=== PATIENT | female | born 1975 | race Caucasian/White ===

== ENCOUNTER 2022-01-13 15:18 | Outpatient (CLI) | payer BC, SELFPAY ==
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
--- OUTSIDE RECORDS SUMMARY | 2022-01-27 09:07 | XMS_ITS ---
:1975 Author Care Team Providers Name Role Phone Yu Francisco Primary Care Provider Unavailable Allergies Code Code System Name Reaction Severity Status Onset Droperidol ? ? Active ? Medications Name Status Start Date Stop Date ? ? alprazolam 0.25 mg tablet Active ? Not av ailable TAKE 1 TABLET BY MOUTH TWICE DAILY NEEDED fluconazole 150 mg tablet Completed ? 2020 TAKE ONE TABLET BY MOUTH ONCE FOR 1 DOS E. TAKE 1 TABLET BY MOUTH 1 TIME WEEKLY IF ON CLEOCIN FOR VAGINAL SYMPTOMS metronidazole 500 mg tablet Active ? Not available TAKE ONE TABLET BY MOUTH TWICE DAILY terbinafine HCl 250 mg tablet Completed ? TAKE ONE TABLET BY MOUTH DAILY turmeric root extract 500 mg capsule Active 06/28/2021 Not available Vitamin D Active ? Not available Problems No Known Problems Procedures Date Name [...] ? Tooth Extraction Information not avai lable Results Lab Results Date Name Specimen Result Interpretation Description Value Range Status Address ? 12/22/2021 CBC W/ Diff Blood ? WBC Count 5.0 4.0-11.0 [facility] 10e3/uL 10e3/uL [place] : [address], [place] ? ? Blood ? RBC Count 4.44 3.80-5.20 Final [facility] venous 10e6/uL 10e6/uL [place] : [address] [facility] [address], [place] ? ? Blood ? Hemoglobin 13.6 g/dL 11.7-15.7 [facility] venous g/dL [place] [address] [facility] [address] [place] ? ? Blood ? Hematocrit 41.8 % 35.0-47.0 Final [facility] venous % [place]: [address] [facility] [address], [place] ? ? Blood ? Mcv 94 fL 78-100 fL [facility] [place] [address] [facility] [address], [place] ? ? Blood ? Mch 30.6 pg 26.5-33.0 Final [facility] th venous pg [place]: [address] [facility] [address], [place] ? ? Blood ? Mchc 32.5 g/dL 31.5-36.5 Final [facility] alth venous g/dL [place]: [address] [facility] [address], [place] ? ? Blood ? Rdw 13.2 % 10.0-15.0 [facility] % [place]: [address] [facility] [address], [place] ? ? Blood ? Platelet 251 150-450 Final [facility] th venous Count 10e3/uL 10e3/uL [place] : [address] [facility] [address], [place] ? ? Blood ? % 53 % ? Final [facility] venous Neutrophils [place]: [address] [facility] [address] ? ? Blood ? % 36 % ? Final [facility] venous Lymphocytes [place]: [address] [facility] [address], [place] ? ? Blood ? % 8 % ? Final [facility] venous Monocytes [place]: [address] [facility] [address], [place] ? ? Blood ? % 2 % ? Final [facility] venous Eosinophils [place]: [address] [facility] [address] ? ? Blood ? % 1 % ? Final [facility] venous Basophils [place]: [address] [facility] [address] ? ? Blood ? % Immature 0 % ? Final [facility] lt venous Granulocyte [place]: s [address], [place] ? ? Blood ? Nrbcs per 0 /100 <1 /100 Final [facility] venous 100 Wbc [place]: [address], [place] ? ? Blood ? Absolute 2.6 1.6-8.3 Final M [facility] th venous Neutrophils 10e3/uL 10e3/uL [place]: [address], [place] ? ? Blood ? Absolute 1.8 0.8-5.3 Final M [facility] th venous Lymphocytes 10e3/uL 10e3/uL [place]: [address], [place] ? ? Blood ? Absolute 0.4 0.0-1.3 Final M [facility] venous Monocytes 10e3/uL 10e3/uL [place]: [address] [facility] [address], [place] ? ? Blood ? Absolute 0.1 0.0-0.7 Final M [facility] th venous Eosinophils 10e3/uL 10e3/uL [place]: [address] [facility] [address], [place] ? ? Blood ? Absolute 0.1 0.0-0.2 Final M [facility] venous Basophils 10e3/uL 10e3/uL [place]: [address] [facility] [address], [place] ? ? Blood ? Absolute 0.0 <=0.4 Final Healt h venous Immature 10e3/uL 10e3/uL [place]: Granulocyte [address], [place] ? ? Blood ? Absolute 0.0 ? Final [facility] venous Nrbcs 10e3/uL [place]: [address] [facility] [address], [place] 12/22/2021 CMP, Serum Blood ? Sodium 140 136-145 Final [facility] or Plasma venous mmol/L mmol/L [place]: [address], [place] ? ? Blood ? Potassium 4.7 3.4-5.3 [facility] venous mmol/L mmol/L [place]: [address] [facility] [address] ? ? Blood ? Creatinine 0.54 0.51-0.95 Final [facility] mg/dL mg/dL [place]: [address], [place] ? ? Blood ? Urea 9.4 mg/dL 6.0-20.0 Final [facility] venous Nitrogen mg/dL [place] : [address], [place] ? ? Blood ? Chloride 102 98-107 [facility] mmol/L mmol/L [place]: [address], [place] ? ? Blood ? Carbon 27 mmol/L 22-29 Final [facility] venous Dioxide mmol/L [place]: (Co2) [address], [place] ? ? Blood ? Anion Gap 11 mmol/L 7-[address] [facility] ealth venous mmol/L [place]: [address], [place] ? ? Blood ? Glucose 80 mg/dL 70-99 Final [facility] venous mg/dL [place]: [address], [place] ? ? Blood ? Calcium 9.5 mg/dL 8.6-10.[address] [facility] ealt venous mg/dL [place]: [address], [place] ? ? Blood ? Protein 7.3 g/dL 6.4-8.3 Final [facility] venous Total g/dL [place]: [address], [place] ? ? Blood ? Albumin 4.7 g/dL 3.5-5.2 Final [facility] venous g/dL [place]: [address], [place] ? ? Blood ? Bilirubin 0.4 mg/dL <=1.[address] [facility] ealt venous Total mg/dL [place]: [address], [place] ? ? Blood ? Alkaline 68 U/L 35-104 [facility] Phosphatase U/L [place]: [address], [place] ? ? Blood ? Ast 34 U/L 10-35 U/L [facility] [place]: [address], [place] ? ? Blood ? Alt 28 U/L 10-35 U/L Final M [facility] venous [place]: [address], [place] ? ? Blood ? GFR >90 >60 Final Health venous Estimate mL/min/1. mL/min/1. [place]: 73m2 73m2 [address], [place] 12/22/2021 TSH, Serum Blood ? Tsh 1.31 0.30-4.20 Final [facility] or Plasma venous uIU/mL uIU/mL [place]: [address], [place] 12/22/2021 Lipid Blood High Cholestero 252 mg/dL <200 [facility] Panel, venous l mg/dL [place]: Serum [address], [place] ? ? Blood ? Triglyceri 56 mg/dL <150 Final [facility] venous yolie mg/dL [place]: [address] [facility] [address], [place] ? ? Blood ? Direct 99 mg/dL >=50 Final Healt h venous Measure HDL mg/dL [place]: [address] [facility] [address], [place] ? ? Blood High LDL 142 mg/dL <=100 Final M [facility]alt h venous Cholesterol mg/dL [place]: Calculated [address] [facility] [address] [facility], [place] ? ? Blood High Non HDL 153 mg/dL <130 Final [facility]a lth venous Cholesterol mg/dL [place]: [address] [facility] [address], [place] 12/22/2021 Vitamin D Blood ? Vitamin D 68 ug/L 20-75 Final [facility] Panel, venous Total ug/L [place]: Serum or (25-Hydroxy [address], [place] 12/22/2021 Bacterial ? Gardnerell negative negative F inal [id number] Vaginosis + a ale_e renu: Vaginitis [address], [address] , Vaginal [place] ? ? ? Trichomona negative negative Final C [id number] s [place]: [address] , [place] ? ? ? Leticia negative negative Final Cc00 4_southd [place]: [address] , [place] 12/02/2020 CMP, Serum ? Sodium 141 136-145 Complet e [place] or Plasma mmol/L mmol/L [facility] - Lab: [address], [place] ? ? ? Potassium 3.7 3.5-5.1 Complete Nor th mmol/L mmol/L [facility] - Lab: [address], [place] ? ? ? Chloride 107 98-112 Complete [place] mmol/L mmol/L [facility] - Lab: [address], [place] ? ? ? Carbon 29 mmol/L 21-32 Complete Nort h Dioxide mmol/L [facility] - Lab: [address], [place] ? ? ? BUN (Urea 11 mg/dL 7-24 Complete No rth Nitro) mg/dL [facility] - Lab: [address], [place] ? ? ? Creatinine 0.57 0.55-1.02 Complete [place] mg/dL mg/dL [facility] - Lab: [address], [place] ? ? ? Est GFR >60 >60 Complete [place] (CKD-epi) mL/min mL/min [facility] - Lab: [address], [place] ? ? ? Est GFR If >60 >60 Complete [facility] AM mL/min mL/min [facility] - Lab: [address], [place] ? ? ? Glucose 83 mg/dL 74-106 Complete Nort h mg/dL [facility] - Lab: [address], [place] ? ? ? Calcium, 9.3 mg/dL 8.5-10.1 Complete [place] Serum mg/dL [facility] - Lab: [address], [place] ? ? ? Anion Gap 5.0 0.0-15.0 Complete No rth mmol/L mmol/L [facility] - Lab: [address], [place] ? ? ? Albumin 4.3 g/dL 3.4-5.0 Complete Nor th g/dL [facility] - Lab: [address], [place] ? ? ? Bilirubin- 0.4 mg/dL 0.2-1.0 Complete [place] total mg/dL [facility] - Lab: [address], [place] ? ? ? Alkaline 59 IU/L 45-117 Complete Nort h P'tase IU/L [facility] - Lab: [address], [place] ? ? ? Protein 7.6 g/dL 6.4-8.2 Complete [facility] Total g/dL [facility] - Lab: [address], [place] ? ? ? Ast (Sgot) 20 IU/L 12-37 Complete No rth IU/L [facility] - Lab: [address], [place] ? ? ? Alt (Sgpt) 29 IU/L - Complete No rth IU/L [facility] - Lab: [address], [place] 12/02/2020 Lipid ? Specimen ? ? Complete N orth Panel, Type [facility] - Lab: [address], [place] ? ? High Cholestero 232 mg/dL <200 Complete North l mg/dL [facility] - Lab: [address], [place] ? ? ? Triglyceri 63 mg/dL <150 Complete N orth yolie Profile mg/dL [facility] - Lab: [address], [place] ? ? High LDL Chol, 125 mg/dL <100 Complete N orth Calc mg/dL [facility] - Lab: [address], [place] ? ? ? HDL 94 mg/dL >40 mg/dL Complete Nor th Cholesterol [facility] - Lab: [address], [place] ? ? ? chol/HDL 2.5 0.0-4.9 Complete Nort h Ratio [facility] - Lab: [address], [place] 12/02/2020 Thyrotropin ? Tsh 0.613 0.358-3.7 Compl ete [place] , Quant, uIU/mL 40 uIU/mL [facility] - Lab: [address], [place] 12/02/2020 HPV DNA, CERVIX& ? HPV High negative negative [facility] High-risk CERVIX Risk Type for HPV for HPV Me morial 16 type 16. type 16. Health - Lab: [address], [place] ? ? CERVIX& ? HPV High negative negative Complete [place] CERVIX Risk Type for HPV for HPV Memor ial 18 type 18. type 18. Health - Lab: [address], [place] ? ? CERVIX& ? HPV Other negative negative Complete [place] CERVIX High Risk for other for other [facility] Types high risk high risk Heal th - HPV HPV Lab: [address], [place] 12/02/2020 Pap, LB CERVIX& ? Case see note ? Complete [place] CERVIX Report [facility] - Lab: [address], [place] 12/02/2020 Hemoglobin ? Fingerstic 14.5 g/dL 12.0-15. 0 Final [id number] (Hb), k g/dL [place]: Fingerstick Hemoglobin [address] , [address], [place] Past Encounters 12/22/2021 Gynecologic Examination; Vaginal Dischar ge; Hyperlipidemia Screening; Endocrine/metabolic Screening; Screening for Disorder; Vitamin D Deficiency Yu Francisco CNP: [address] , [address] [address], Ph. 12/02/2020 Gynecologic Examination; Thyroid Disorde r Screening; Cholesterol Screening Yu Francisco CNP: [address] [id number], Ph. Social History Tobacco Smoking Status Never Smoker Notes: Tobacco *Status: Never *Note: 08/01/2018 - Vaccine List None recorded. Plan of Care Patient Instructions 1) await results; 2) advised phD for va ginal d/c; 3) monique delarosa discussed - pt not interested in HRT rig ht now- perimenopause discussed- call if wants to discuss Rx 1) RTC annually/PRN; 2) await lab/pap r esults Reminders Provider Appointments None recorded. ? ? Lab None recorded. ? ? Referral None recorded. ? ? Procedures None recorded. ? ? Surgeries None recorded. ? ? Imaging None recorded. ? ? Vitals 12/22/2021 11:00AM G_ANNUAL EXAM Height Weight BMI Blood Pressure 5 ft 5 in 139.4 lbs 23.2 kg/m2 110/70 mm[Hg] 12/02/2020 12:45PM G_ANNUAL EXAM Height Weight BMI Blood Pressure 5 ft 5 in 135.4 lbs 22.5 kg/m2 120/60 mm[Hg] 08/01/2018 Height Weight BMI Blood Pressure 5 ft 5.04 in 129.81 lbs 21.60 kg/m2 110/78 mm[Hg] 09/22/2015 Height Weight BMI Blood Pressure 5 ft 5.04 in 131 lbs 21.80 kg/m2 118/80 mm[Hg] 10/07/2014 Height Weight BMI Blood Pressure 5 ft 5.04 in 132.25 lbs 22.01 kg/m2 118/60 mm[Hg] 09/09/2014 Height Weight BMI Blood Pressure 5 ft 5.04 in 134 lbs 22.30 kg/m2 102/66 mm[Hg] 08/13/2013 Height Weight BMI Blood Pressure 5 ft 5.04 in 134 lbs 22.30 kg/m2 112/74 mm[Hg] 09/25/2012 Height Weight BMI Blood Pressure 5 ft 5.04 in 135 lbs 22.46 kg/m2 110/80 mm[Hg] 03/06/2012 Height Weight BMI Blood Pressure 5 ft 5.04 in 129.25 lbs 21.51 kg/m2 126/80 mm[Hg] 01/17/2012 Height Weight BMI Blood Pressure 5 ft 5.04 in 129.25 lbs 21.51 kg/m2 100/72 mm[Hg] 11/18/2010 Height Weight BMI Blood Pressure 5 ft 5.04 in 132 lbs 21.97 kg/m2 106/70 mm[Hg]
== END 2022-01-13 15:19 | disposition home or self-care (01) ==
LOC: FRMREF 01-27 08:51
PROVIDERS: PCP Physician Assistant Medical; Visit Provider Physician Assistant Medical
DX: R30.0 Dysuria (principal); R39.15 Urgency of urination; N30.01 Acute cystitis with hematuria
CPT/HCPCS: 87086; 87186

== ENCOUNTER 2022-04-13 08:57 | Outpatient (CLI) | payer BC, SELFPAY | END 2022-04-13 08:58 | disposition home or self-care (01) | LOC: LKVREF 04-17 14:54 | PROVIDERS: PCP Physician Assistant Medical; Visit Provider Physician Assistant Medical | DX: R30.0 Dysuria (principal); N39.0 Urinary tract infection, site not specified | CPT/HCPCS: 87086; 87186 ==

== ENCOUNTER 2024-06-19 14:10 | Outpatient (CLI) | payer BC, SELFPAY | END 2024-06-19 14:11 | disposition home or self-care (01) | PROVIDERS: PCP Physician Assistant Medical; Visit Provider Physician Assistant Medical | DX: M79.641 Pain in right hand (principal); M79.642 Pain in left hand | CPT/HCPCS: 82306; 84550; 86038; 86039; 86140; 86200; 86431; 86618 ==